=== PATIENT | male | born 1970 | race Caucasian/White ===

== ENCOUNTER 2019-09-22 09:26 | Observation (INO) | payer OTHER ==
[~2019-09-22] VITALS: Ht 188 cm; Wt 160.6 kg
[2019-09-22] MEDS ORDERED: ASA81BEC PO (10:18)
[2019-09-22] MEDS ORDERED: NORVASC 2.5 MG2.5 M1 PO (10:18)
[2019-09-22] MEDS ORDERED: TOPROL XL100 MG PO (10:19)
[2019-09-22] MEDS ORDERED: COZAAR 25 MG TA25 M2 PO (10:19)
[2019-09-22] MEDS ORDERED: BUMEX2 MG PO (10:19)
[2019-09-22] MEDS ORDERED: KLOR-CON 10 ER10 MEQ PO (10:20)
[2019-09-22 10:32] VITALS: BP 117/84
[2019-09-22 10:37] LABS: ABSOLUTE NEUTROPHILS 4.9 thou/uL (1.4-8.2); BASOPHILS 0.5 % (0.0-2.0); EOSINOPHILS 2.7 % (0.0-3.0); HEMOGLOBIN 15.1 gm/dL (14.0-18.0); MCH 31.7 pg (26.0-34.0); MCHC 34.2 g/dL (28.0-37.0); MCV 92.7 fL (80.0-100.0); MONOCYTES 9.1 % (1.0-8.0); PLATELET COUNT 195 thou/uL (150-400); POLYS 57.7 % (36.0-66.0); RBC 4.75 mil/uL (4.50-6.00); RDW 13.7 % (10.5-14.5); WBC 8.5 thou/uL (4.0-11.0)
[2019-09-22 10:56] LABS: ALBUMIN 3.6 g/dL (3.4-5.0); CALCIUM 9.6 mg/dL (8.5-10.1); CREATININE 1.2 mg/dL (0.7-1.3); POTASSIUM 3.8 mmol/L (3.5-5.1); TOTAL BILIRUBIN 0.5 mg/dL (<0.1-1.0); TOTAL PROTEIN 7.8 g/dL (6.4-8.2)
[2019-09-22 11:02] LABS: PROTIME 10.4 Seconds (9.3-11.4)
--- NOTE | 2019-09-22 13:47 | EKG ---
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: Mi CAVAZOS : 1970 Requested By: Ted Dwyer Order Number: [id number] MD: Vamsi Padilla Measurements Intervals Joshua Rate: 86 P: 38 AR: 181 QRS: 10 QRSD: 115 T: 58 QT: 429 QTc: 513 Interpretive Statements Sinus rhythm Nonspecific intraventricular conduction delay Nonspecific T wave abnormality No previous ECG available for comparison Electronically Signed On 09-22-2019 13:46:48 WAITER/WAITRESS DINING CAR by Vamsi Padilla [email or web address] <ELECTRONICALLY SIGNED> By: Vamsi Padilla MD, [facility] 09/22/19 1346 100 Vamsi Padilla MD, FACC /EPI
[2019-09-22 16:10] VITALS: BP 129/87
[2019-09-22 19:23] VITALS: BP 118/86
--- NOTE | 2019-09-22 19:53 | NUR ---
PT ARRIVED AT APPROX 1600 FROM PACU S/P ICD PLACEMENT. PT DROWSY, A&OX3, BEDREST POST ICD PLACEMENT. IMMOBILIZER IN PLACE. O2 SATS WNL ON 2L O2. ADMISSION COMPLETE. VSS. DENIES PAIN. INCISION WELL APPROXIMATE, SURGICAL GLUE INTACT, OPEN TO AIR. SR MONITOR. DENIES NEEDS AT THIS TIME. PT CURRENTLY RESTING IN BED. WILL CONT TO MONITOR AND FOLLOW POC.
[2019-09-22 23:49] VITALS: BP 112/58
--- NOTE | 2019-09-23 04:31 | NUR ---
ASSUMED PT CARE AROUND 1900. PT VSS AND PT AOX4. PT HAD NO C/O PAIN. DENIED N/V/D. ICD PLACED ON LEFT CHEST OPEN WITH SURGICAL GLUE C/D/I. PT DENIED SOB. PT ON BEDREST WITH IMMOBILIZER FOR 24HRS POST PROCEDURE. PT VOIDING SUFFICIENTLY. PT SLEPT THRU NIGHT WITH MINIMAL INTERRUPTIONS. PT IS PROGRESSING TOWARDS POC AND DISCHARGE.
[2019-09-23 05:15] VITALS: BP 131/73
[2019-09-23 07:10] VITALS: BP 121/66
[2019-09-23 11:25] VITALS: BP 128/61
[2019-09-23 11:44] VITALS: BP 121/66
--- NOTE | 2019-09-23 12:48 | NUR ---
ASSUMED CARE AT SHIFT CHANGE, ALERT AND ORIENTED X4. LT ARM IMMOBOLIZER INPLACE, AND LT UPPET CHEST INCISION WELL APPROXIAMTED. PATIENT DENIES AND PAIN OR DISCOMFORT. SR ON THE MONITOR AND VSS. DISCHAGE AND MEDICATION INSTRUCTIONS GIVEN TO PATIENT AND HE VERBALIZED UNDERSANDING.
--- NOTE | 2019-10-05 17:31 | P ---
[facility] [place] [address] [place] [address] PROCEDURE REPORT Name: YARIEL MELO Room #: 200-I [facility] Jair Kumar#: [id number] Admission: 09/22/19 Attend Phys: Ted Dwyer MD Discharge: 09/23/19 Date of : 68 Report #: [id number] THIS REPORT FOR: //name// CC: FAM unknown Jose Rosado Ted Dwyer PREOPERATIVE DIAGNOSIS: Cardiomyopathy. POSTOPERATIVE DIAGNOSIS: Cardiomyopathy. PROCEDURES PERFORMED: Dual-chamber ICD implantation. HISTORY: The patient is a 49-year-old male with a history of cardiomyopathy, here for ICD implantation for primary prevention of sudden cardiac . ANESTHESIA: The patient underwent MAC anesthesia with no anesthesia related complications. DESCRIPTION OF PROCEDURE: The patient underwent informed consent. We discussed the details of the procedure including the risks, which include but not limited to bleeding, infection, vascular damage, cardiac perforation and pneumothorax. He understood these risks and is willing to proceed. The patient was brought to the EP laboratory in fasting and sedated state, prepped and draped in a sterile fashion, received IV antibiotics and underwent a venogram showing patency of left axillary vein. Next, lidocaine was injected. Incision was made, pocket was created over the prepectoral fascia. Access was obtained twice to left axillary vein with sheaths positioned using the modified Seldinger technique. Next, leads were positioned in the right ventricular apex, right atrial appendage both with adequate pacing and sensing thresholds. Leads were sutured to prepectoral fascia. Device was connected. Pocket irrigated with vancomycin. Pocket closed in 2 layers using 2-0 for the deep layer, 3-0 for the middle layer and surgical glue placed to the outer skin layer. The patient awoke neurologically and hemodynamically intact. No complications and no significant bleeding. The implanted device was a Medtronic model #SGGR6U0, serial #[id number]. Atrial lead was a Medtronic 5076, serial #[id number]. Ventricular lead was a Medtronic model #6947, serial #[id number]. The atrial lead demonstrated P-wave of 2.3 millivolts, pacing impedance of 456 ohms, pacing threshold 0.5 volts at 0.4 milliseconds. The RV lead demonstrated R-wave of 18.3 millivolts, pacing impedance of 475 ohms and the pacing threshold was 0.5 volts at 0.4 milliseconds. The device was programmed to the DDD 60-130 mode. The VT zone was set at 180-220 beats per minute with ATP with 3 rounds of bursts followed by 3 rounds of ramp followed by max output shocks. The VF zone was set at greater than 220 beats per minute with ATP while charging followed by max output shocks. [facility] [address] [place] [address] PROCEDURE REPORT Name: YARIEL MELO DEMETRI Room #: 200-I [facility] Jair Kumar#: [id number] Admission: 09/22/19 Attend Phys: Ted Dwyer MD Discharge: 09/23/19 Date of : 68 Report #: [id number] CONCLUSIONS: 1. Successful dual-chamber ICD implantation. 2. Satisfactory atrial and ventricular pacing and sensing thresholds. <ELECTRONICALLY SIGNED> By: Ted Dwyer MD 10/05/19 1731 1153 1611 Ted Dwyer MD /nt
== END 2019-09-23 13:04 | disposition home or self-care (01) ==
LOC: CATH 09:26 → 2N 16:41 → CATH 19:03 → 2N 09-23 13:04
PROVIDERS: ADMIT Internal Medicine Cardiovascular Disease
DX: I42.8 Other cardiomyopathies (principal)

== ENCOUNTER → 2020-01-09 | Outpatient (CLI) | payer OTHER ==
[~2020-01-09] MED LIST: ASA81BEC PO; BUMEX2 MG PO; COZAAR 25 MG TA25 M2 PO; KLOR-CON 10 ER10 MEQ PO; NORVASC 2.5 MG2.5 M1 PO; TOPROL XL100 MG PO
== END ==
LOC: SJCVC 14:48
DX: I42.8 Other cardiomyopathies (principal); Z95.810 Presence of automatic (implantable) cardiac defibrillator

== ENCOUNTER 2021-04-23 06:19 | Observation (INO) | payer OTHER ==
[~2021-04-23] VITALS: Ht 185.4 cm; Wt 149.7 kg
[~2021-04-23 06:19] MED LIST changes: +DIGOXIN250 MCG PO; +PACERONE 200 M200 M1 PO; +XARELTO20 MG PO
[2021-04-23 07:57] VITALS: BP 121/68
[2021-04-23] MEDS ORDERED: NORVASC5 MG PO (08:06)
[2021-04-23] MEDS ORDERED: BUMEX2 MG PO (08:07)
[2021-04-23] MEDS ORDERED: K-TAB ER8 MEQ PO (08:08)
[2021-04-23 08:37] LABS: ABSOLUTE NEUTROPHILS 4.3 thou/uL (1.4-8.2); BASOPHILS 0.4 % (0.0-2.0); HEMATOCRIT 41.6 % (42.0-52.0); HEMOGLOBIN 14.1 gm/dL (14.0-18.0); MCH 31.7 pg (26.0-34.0); MCV 93.3 fL (80.0-100.0); MONOCYTES 7.8 % (1.0-8.0); PLATELET COUNT 200 thou/uL (150-400); POLYS 58.8 % (36.0-66.0); RBC 4.46 mil/uL (4.50-6.00); RDW 12.9 % (10.5-14.5); WBC 7.3 thou/uL (4.0-11.0)
[2021-04-23 08:50] LABS: APTT 25.2 Seconds (24.5-32.8); PROTIME 10.9 Seconds (9.3-11.4)
[2021-04-23 09:34] LABS: CALCIUM 8.6 mg/dL (8.5-10.1); CREATININE 1.4 mg/dL (0.7-1.3); POTASSIUM 3.7 mmol/L (3.5-5.1)
[2021-04-23 09:40] LABS: ALBUMIN 3.8 g/dL (3.4-5.0); TOTAL BILIRUBIN 0.6 mg/dL (0.2-1.0); TOTAL PROTEIN 7.5 g/dL (6.4-8.2)
[2021-04-23 15:32] VITALS: BP 127/68
--- NOTE | 2021-04-23 17:49 | NUR ---
PT ARRIVED TO UNIT FROM ARRT TECHNOLOGIST VIA ARRT TECHNOLOGIST STAFF IN WHEELCHAIR. PT OFF BEDREST, WALKING MAHAD WELL. R GROIN SITE CDI NO HEMTOMA. VSS C/O HEADACHE MANAGED WITH PO PAIN MEDS. RELIEF OBTAINED. ADMISSION COMPLETE. CURRENTLY RESTING IN BED DENYING OF NEEDS. CONT TO MONITOR. WILL PASS REPORT TO NOC ANGELA.
[2021-04-23 19:07] VITALS: BP 132/80
--- NOTE | 2021-04-23 19:54 | NUR ---
PT REPORTED CHEST PAIN APPROX 1850, EKG OBTAINED- SR. VSS, SOB 2L NC APPLIED WITH RELIEF. O2 SATS 100%. PHYSICIAN NOTIFIED OF CHEST PAIN, PT REPORTED IT HAD RESOLVED. NO NEW ORDERS RECEIVED. REPORT PASSED TO ANNEMARIE MILLER.
[2021-04-23 23:45] VITALS: BP 116/52
[2021-04-24 03:25] VITALS: BP 107/49
--- NOTE | 2021-04-24 04:44 | NUR ---
SLEPT PART OF SHIFT. UP TO BATHROOM AD BARI WITH STEADY GAIT. RIGHT GROIN DRESSING C/D/I WITHOUT BLEEDING OR HEMOTOMA. WORKING ON GOALS AND PLAN OF CARE FOR NOC. CONTINUE TO ASSES CLOSELY.
[2021-04-24 07:10] VITALS: BP 113/64
--- NOTE | 2021-04-24 07:30 | EKG ---
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
[2021-04-24 11:30] VITALS: BP 113/64
--- NOTE | 2021-04-24 12:34 | NUR ---
PT IS AXOX4, PLEASANT; DENIES PAIN, VSS, AFEBRILE, SR ON THE MONITOR. PT UP AD BARI TO AMBULATE THE WRIGHT; R GROIN SITE C/D/I, NO HEMATOMA. CARDIOLOGY CONSULTED; PT TO D/C HOME. DISCHARGE EDUCATION CONDUCTED. PT COMMUNICATED UNDERSTANDING. PT D/C HOME VIA PERSONAL VEHICLE. NO CONCERNS AT THIS TIME.
--- NOTE | 2021-05-05 15:45 | P ---
[facility] [place] [address] [place] [address] PROCEDURE REPORT Name: YARIEL MELO Room #: 204-P [facility] Jair Kumar#: [id number] Admission: 04/23/21 Attend Phys: Ted Dwyer MD Discharge: 04/24/21 Date of : 68 Report #: [id number] THIS REPORT FOR: cc: FAM - Family physician unknown FAM - Family physician unknown Ted Dwyer MD ~ DATE OF SERVICE: 04/23/2021 PROCEDURES PERFORMED: 1. Atrial fibrillation ablation, CPT code 33624. 2. 3D mapping, CPT code 50801. 3. Intracardiac echo, CPT code 91147. 4. Focal ablation, CPT code 38658. 5. Preprocedural ICD reprogramming, CPT code 76877. 6. Post-procedural ICD reprogramming, CPT code 30130. HISTORY: The patient is a 50-year-old with recurrent AFib, here for ablation. DESCRIPTION OF PROCEDURE: The patient was brought to the EP laboratory in fasting and sedated state, prepped and draped in a sterile fashion. I reprogrammed his ICD to turn off VT therapies. Next, I obtained access in the right femoral vein x 3, placing an 8, 9, and 7-Serbian short sheath and a decapolar catheter was placed into the coronary sinus for left atrial pacing and recording. An ICE catheter was placed in the right atrium. Intracardiac ultrasound demonstrated the patient had 2 right and 2 left pulmonary veins. The patient was systemically heparinized. A transseptal was performed using an SL1 sheath and a [facility] needle. This was straightforward and then exchanged for the Cryo sheath and placed the Lasso catheter in the left atrium. Next, a 3D geometry and voltage map of the left atrium was created. Then, we started isolating the pulmonary veins. The left superior pulmonary vein underwent a 4-minute freeze and isolated at 48 seconds. The left inferior pulmonary vein underwent a 4-minute freeze and isolated at 39 seconds. The right superior pulmonary vein underwent two 4-minute freezes and did not isolate a third freeze of 180 seconds, resulted in isolation. The right inferior pulmonary vein underwent a 4-minute freeze isolating at 50 seconds. Next, I performed posterior roof isolation. A total of five freezes each of 3 minutes of duration were performed along the posterior roof region. Post-ablation, a repeat voltage map was performed demonstrating isolation of the pulmonary veins and partial isolation of the roof region. An EP study was then performed and AV block was noted at 360 milliseconds. AV jeferson ERP was noted at 320 milliseconds at a [address] cycle length, atrial burst pacing down to 240, showed no AFib or SVT. As such, the procedure was concluded. The patient received systemic protamine and once ACT was within acceptable range, catheters and sheaths were pulled and hemostasis obtained. His ICD was programmed back to its original settings. [facility] [address] [place] [address] PROCEDURE REPORT Name: YARIEL MELO Room #: 204-P [facility] Kumar#: [id number] Admission: 04/23/21 Attend Phys: Ted Dwyer MD Discharge: 04/24/21 Date of : 68 Report #: [id number] CONCLUSIONS: 1. Successful AFib ablation with isolation of the pulmonary veins. 2. Successful posterior roof isolation. 3. Successful pre and post-procedural ICD reprogramming. <ELECTRONICALLY SIGNED> By: Ted Dwyer MD 05/05/21 1545 1120 2242 Ted Dwyer MD /nt
== END 2021-04-24 12:35 | disposition home or self-care (01) ==
LOC: CATH 06:19 → 2N 15:09
PROVIDERS: ADMIT Internal Medicine Cardiovascular Disease; ATTEND Internal Medicine Cardiovascular Disease
DX: I48.91 Unspecified atrial fibrillation (principal); I42.8 Other cardiomyopathies; I10 Essential (primary) hypertension; E66.01 Morbid (severe) obesity due to excess calories; Z68.41 Body mass index [BMI] 40.0-44.9, adult; Z91.018 Allergy to other foods; Z91.011 Allergy to milk products; Z79.899 Other long term (current) drug therapy; Z79.82 Long term (current) use of aspirin
CPT/HCPCS: 62110; 62900; 65020; 65040; 65131; 70005